=== PATIENT | male | born 1990 | race Two or more races ===

== ENCOUNTER 2018-06-23 09:48 | Outpatient (CLI) | payer OTHER ==
--- NOTE | 2018-06-23 15:00 | MRI Report ---
Reason: PAIN IN JOINTS OF RIGHT HAND Procedure Date: 06/23/2018 Accession Number: [id number] / [id number] Procedure: MRI - Hand RT W/O CPT Code: FULL RESULT: EXAM: RIGHT HAND MRI WITHOUT CONTRAST EXAM DATE: 06/23/2018 10:38 AM. CLINICAL HISTORY: Right third metacarpophalangeal joint pain after crush injury. COMPARISON: None. TECHNIQUE: Multiplanar, multisequence T1-weighted and fluid-sensitive sequences of the hand without contrast. Other: None. FINDINGS: Some of the images are degraded due to patient-related motion artifact. Bones: No fractures or subluxations. No marrow edema. No bone lesions. Cartilage: The articular cartilage is unremarkable. Ligaments: The visualized collateral ligaments are intact. Tendons: The flexor and extensor tendons are unremarkable. There is mild edema between the extensor tendon apparatus and the dorsal aspect of the third metacarpal head. The sagittal band at the third metacarpophalangeal joint is intact. Musculature: No edema or fatty atrophy. Other: No joint effusions. The subcutaneous tissues are unremarkable. IMPRESSION: 1. Mild edema between the extensor tendon apparatus and the dorsal aspect of the third metacarpal head which may be inflammatory or posttraumatic. No evidence of tendon or sagittal band injury. [facility]CULOSKE[facility] SECTION
== END 2018-06-23 09:49 | disposition home or self-care (01) ==
LOC: DI 09:48
PROVIDERS: ATTEND Orthopaedic Surgery
DX: M25.541 Pain in joints of right hand (principal)

== ENCOUNTER 2018-07-28 08:48 | Outpatient (CLI) | payer OTHER ==
[2018-07-28] MEDS ORDERED: BUFFERED LIDOCAINE 10 ML SYRINGE ONE (09:26)
[2018-07-28] MEDS ORDERED: IOTHALAMATE MEGLUMINE 50 ML VIAL ONE (09:26)
[2018-07-28] MEDS ORDERED: GADOPENTETATE DIMEGLUMINE 5 ML VIAL IVP ONE ×2 (09:27→11:21)
[2018-07-28] MEDS ORDERED: BUFFERED LIDOCAINE 10 ML SYRINGE IU ONE (10:24)
[2018-07-28] MEDS ORDERED: IOTHALAMATE MEGLUMINE 50 ML VIAL IVP ONE (11:21)
--- NOTE | 2018-07-28 17:01 | XRAY Report ---
Reason: PAIN IN LEFT HIP Procedure Date: 07/28/2018 Accession Number: [id number] / [id number] Procedure: FL - Arthrogram Needle Placement CPT Code: FULL RESULT: EXAM: FLUOROSCOPIC GUIDANCE EXAM DATE: 07/28/2018 10:20 AM. CLINICAL HISTORY: Needle placement. COMPARISON: None. TECHNIQUE: Informed consent was obtained. Left common femoral artery was located by palpation and marked on the skin. Entry site over the left hip was then localized with fluoroscopic guidance and marked. The skin site was then prepped and draped in usual sterile fashion. Skin and deeper tissues were anesthetized with 7 cc of 1% lidocaine. A 22-gauge spinal needle was then advanced into the joint space with its tip position confirmed with injection of 3 cc of Conray contrast. Following this, 13 cc gadolinium/sterile saline mixture were then advanced into the joint space (concentration 0.1 cc gadolinium to 15 cc of saline). Patient tolerated the procedure well and was then sent for MRI. FINDINGS: Images confirm placement of needle tip with injection of contrast material in the left hip. IMPRESSION: Fluoroscopic guidance provided for contrast injection for left hip arthrogram. Total fluoroscopy time: 47 seconds. Number of images: 2. [facility]
--- NOTE | 2018-07-28 20:08 | MRI Report ---
Reason: PAIN IN LEFT HIP Procedure Date: 07/28/2018 Accession Number: [id number] / [id number] Procedure: MRI - Arthrogram Hip LT CPT Code: FULL RESULT: EXAM: LEFT HIP MRI ARTHROGRAM WITH CONTRAST EXAM DATE: 07/28/2018 10:43 AM. CLINICAL HISTORY: PAIN IN LEFT HIP. COMPARISON: None. TECHNIQUE: Multiplanar, multisequence T1-weighted and fluid-sensitive, small surls-iq-gtor sequences of the hip and large stotp-sp-gxcn sequences of the pelvis after an arthrographic injection of dilute gadolinium, dictated under a separate exam. Other: None. FINDINGS: Bones: No fractures or subluxations. No marrow edema or bone lesions. Left Hip: No acetabular retroversion. Femoral head/neck offset is within normal limits. No loose bodies. The articular cartilage is intact. Anterior left acetabular labrum tear (image 16 series 701). Shallow contrast defect lateral left acetabular labrum (image 11 series 601). The ligamentum teres is intact. Other Joints: The visualized lumbar spine, sacroiliac joints, symphysis pubis, and contralateral hip are unremarkable. Musculature: No edema or fatty atrophy. The gluteus medius and minimus tendons are normal. The visualized hamstring tendons are normal. The ischiofemoral space is normal. Pelvic Cavity: The visualized viscera are unremarkable. No lymphadenopathy. No free fluid in the pelvis. Other: The visualized sciatic nerves are unremarkable. No bursitis. The subcutaneous tissues are unremarkable. IMPRESSION: Anterior left acetabular labrum tear. Possible partial tear lateral left hip acetabular labrum (image 11 series 601). [facility]CULOSKE[facility] SECTION
== END 2018-07-28 08:49 | disposition home or self-care (01) ==
LOC: DI 08:48
PROVIDERS: ATTEND Nurse Practitioner Family
DX: S73.192A Other sprain of left hip, initial encounter (principal)
CPT/HCPCS: 27093; 73722; 77002; Q9961